=== PATIENT | male | born 1965 | race Caucasian/White ===

== ENCOUNTER 2018-02-27 09:44 | Inpatient (IN) | payer OTHER | END 2018-03-01 11:50 | disposition home or self-care (01) | LOC: ER 09:44 → SUR 3N 02-28 07:20 → ED HOLD 12:58 ==

== ENCOUNTER 2019-09-25 17:02 | Inpatient (IN) | payer OTHER ==
[~2019-09-25] VITALS: Ht 185.4 cm; Wt 104.0 kg
[~2019-09-25 17:02] MED LIST: FERR325T32 PO; FOLI1TAB16 PO; PANT40TA4 PO; THIA100T66 PO
[2019-09-25] MEDS ORDERED: pantoprazole 40MG/NS 100ML BAG 100 ML IV STA (17:22)
[2019-09-25] MEDS ORDERED: pantoprazole IV 80 MG in normal saline 100ml IV soln 100 ML IV ONE (17:25)
[2019-09-25] MEDS ORDERED: normal saline 1000ML IV soln IV ONE (17:25)
[2019-09-25] MEDS ORDERED: pantoprazole 40 MG vial IV ONE (17:35)
[2019-09-25 17:47] LABS: BASOPHILS # (AUTO) 0.1 X10'3 (0-0.2); BASOPHILS % (AUTO) 0.8 % (0-1); EOSINOPHILS # (AUTO) 0.1 X10'3 (0-0.9); EOSINOPHILS % (AUTO) 0.9 % (0-6); HEMATOCRIT 26.7 % (42.0-52.0); HEMOGLOBIN 9.4 g/dl (14.0-17.9); LYMPHOCYTES # (AUTO) 2.9 X10'3 (1.1-4.8); LYMPHOCYTES % (AUTO) 28.6 % (21-51); MEAN CORPUSCULAR HEMOGLOBIN 32.7 PG (27.0-31.0); MEAN CORPUSCULAR HGB CONC 35.2 g/dL (33.0-36.5); MEAN PLATELET VOLUME 7.6 FL (7.4-10.4); MONOCYTES # (AUTO) 0.8 X10'3 (0-0.9); NEUTROPHILS # (AUTO) 6.2 X10'3 (1.8-7.7); NEUTROPHILS % (AUTO) 61.7 % (42-75); PLATELET COUNT 149 X10'3 (140-440); RED BLOOD COUNT 2.87 X10'6 (4.70-6.10); RED CELL DISTRIBUTION WIDTH 16.5 % (11.5-14.5)
--- NOTE | 2019-09-25 17:49 | NUR ---
spoke with pt's and she states pt had had bright red bloody bm and dark tary black stool today at 1200
[2019-09-25 17:57] LABS: ALANINE AMINOTRANSFERASE 28 U/L (12-78); ALBUMIN/GLOBULIN RATIO 0.9 (1.1-1.5); ALKALINE PHOSPHATASE 49 IU/L (46-116); ANION GAP 9 (8-16); ASPARTATE AMINO TRANSFERASE 28 U/L (10-37); BILIRUBIN,TOTAL 0.7 MG/DL (0.1-1.0); BLOOD UREA NITROGEN 33 MG/DL (7-18); BUN/CREATININE RATIO 30.8 (5.4-32.0); CALCIUM 8.1 MG/DL (8.5-10.1); CHLORIDE 109 MMOL/L (99-107); CREATININE 1.07 MG/DL (0.60-1.10); ETHANOL < 0.010 GM/DL (0.0-0.010); GLUCOSE 106 MG/DL (70-104); LIPASE 121 U/L (73-393); PARTIAL THROMBOPLASTIN TIME 28 SECONDS (22-32); POTASSIUM 3.9 MMOL/L (3.5-5.1); SODIUM 141 MMOL/L (135-145); TOTAL CARBON DIOXIDE 23.4 MMOL/L (24-32); TOTAL PROTEIN 6.5 G/DL (6.4-8.2); eGFR 71 ML/MIN
[2019-09-25] MEDS ORDERED: NO HOME MEDS (18:43)
[2019-09-25 19:45] LABS: CLARITY,URINE CLEAR (Clear); COLOR,URINE YELLOW (Yellow); GLUCOSE, URINE NEGATIVE (Neg); KETONES,URINE NEGATIVE (Neg); LEUKOCYTE ESTERASE ,URINE NEGATIVE (Neg); NITRITES, URINE NEGATIVE (Neg); OCCULT BLOOD,URINE NEGATIVE (Neg); PROTEIN,URINE NEGATIVE (Neg); UA COLLECTION TYPE CLN CATCH MIDSTREAM; UROBILINOGEN,URINE 0.2 E.U/dL (0.2-1.0)
[2019-09-25] MEDS ORDERED: acetaminophen 325mg tablet PO PRN ×2 (20:00)
[2019-09-25] MEDS ORDERED: magnesium 4gm in 100ml NS 100 ML IV PRN (20:00)
[2019-09-25] MEDS ORDERED: LORazepam 2 mg/ml vial IV PRN (20:00)
[2019-09-25] MEDS ORDERED: magnesium 2GM in 50ml NS 50 ML IV PRN (20:00)
[2019-09-25] MEDS ORDERED: morphine 2 MG/ML inj. syringe IV PRN (20:00)
[2019-09-25] MEDS: K and/or MAG REPLACEMENT MC SCH (20:00)
[2019-09-25] MEDS ORDERED: ondansetron/PF 4mg/2ml inj IV PRN (20:00)
[2019-09-25] MEDS ORDERED: HYDROcodone/acetaminophen 5mg/325mg tablet PO PRN (20:00)
[2019-09-25] MEDS ORDERED: potassium CL 10mEq/100ml bag 100 ML IV PRN ×2 (20:00)
[2019-09-25] MEDS ORDERED: potassium Cl 20 mEq SR tablet PO PRN ×2 (20:00)
[2019-09-25] MEDS ORDERED: magnesium Cl slow-release 64mg tablet PO PRN (20:00)
[2019-09-25] MEDS ORDERED: LORazepam 1 MG tablet PO PRN (20:00)
[2019-09-25] MEDS: normal saline 1000ml 1,000 ML IV SCH (20:21)
--- NOTE | 2019-09-25 20:34 | NUR ---
Patient in room ED 10. I have received report from Vianney BECERRA and had the opportunity to ask questions and awaiting arrival of the patient to the PCU unit.
--- NOTE | 2019-09-25 20:50 | NUR ---
Patient arrived from the ED to PCU at this time into room 3012C. He is alert and oriented and able to make his needs known. He scooted over from the gurney to the bed without issues. His vitals are stable. He is on room air. Call light in reach and all safety precautions in place. Will continue to monitor.
[2019-09-25 21:00] VITALS: BP 131/70
[2019-09-25 21:06] LABS: % IRON SATURATION 56 % (11-46); IRON 164 UG/DL (53-167); TOTAL IRON BINDING CAPACITY 291 UG/DL (259-388)
[2019-09-25] MEDS: pantoprazole 40MG/NS 100ML BAG 100 ML IV SCH (22:04)
[2019-09-26] VITALS (22 sets, daily range): BP systolic 95–138; BP diastolic 41–80
[2019-09-26] MEDS: pantoprazole 40MG/NS 100ML BAG 100 ML IV SCH ×5 (02:52→23:42)
[2019-09-26] MEDS: normal saline 1000ml 1,000 ML IV SCH ×3 (05:10→17:55)
[2019-09-26 05:22] LABS: BASOPHILS % (AUTO) 0.5 % (0-1); EOSINOPHILS # (AUTO) 0.1 X10'3 (0-0.9); EOSINOPHILS % (AUTO) 1.9 % (0-6); LYMPHOCYTES # (AUTO) 1.3 X10'3 (1.1-4.8); LYMPHOCYTES % (AUTO) 37.9 % (21-51); MEAN CORPUSCULAR HGB CONC 35.4 g/dL (33.0-36.5); MEAN CORPUSCULAR VOLUME 93.4 FL (78-98); MEAN PLATELET VOLUME 7.8 FL (7.4-10.4); MONOCYTES # (AUTO) 0.4 X10'3 (0-0.9); MONOCYTES % (AUTO) 10.3 % (2-12); NEUTROPHILS # (AUTO) 1.7 X10'3 (1.8-7.7); NEUTROPHILS % (AUTO) 49.4 % (42-75); PLATELET COUNT 65 X10'3 (140-440); RED BLOOD COUNT 1.95 X10'6 (4.70-6.10); RED CELL DISTRIBUTION WIDTH 16.5 % (11.5-14.5); WHITE BLOOD COUNT 3.4 X10'3 (4.5-11.0)
[2019-09-26 05:38] LABS: ALANINE AMINOTRANSFERASE 22 U/L (12-78); ALBUMIN 2.3 G/DL (3.4-5.0); ALBUMIN/GLOBULIN RATIO 0.8 (1.1-1.5); ALKALINE PHOSPHATASE 37 IU/L (46-116); AMYLASE 26 U/L (25-115); ANION GAP 7 (8-16); ASPARTATE AMINO TRANSFERASE 19 U/L (10-37); BILIRUBIN,TOTAL 0.5 MG/DL (0.1-1.0); BLOOD UREA NITROGEN 30 MG/DL (7-18); BUN/CREATININE RATIO 25.2 (5.4-32.0); CALCIUM 7.8 MG/DL (8.5-10.1); CHLORIDE 114 MMOL/L (99-107); CREATININE 1.19 MG/DL (0.60-1.10); GLUCOSE 99 MG/DL (70-104); LIPASE 212 U/L (73-393); MAGNESIUM 1.9 MG/DL (1.5-2.4); POTASSIUM 3.8 MMOL/L (3.5-5.1); SODIUM 144 MMOL/L (135-145); TOTAL CARBON DIOXIDE 23.2 MMOL/L (24-32); TOTAL PROTEIN 5.1 G/DL (6.4-8.2); eGFR 63 ML/MIN
--- NOTE | 2019-09-26 06:43 | NUR ---
Problems reprioritized. Patient report given, questions answered & plan of care reviewed with Chuy RN.
--- NOTE | 2019-09-26 06:51 | NUR ---
Patient in room PCU 3012. I have received report from jose carlos and had the opportunity to ask questions and assume patient care.
[2019-09-26 06:57] LABS: HEMATOCRIT 18.2 % (42.0-52.0); HEMOGLOBIN 6.5 g/dl (14.0-17.9)
--- NOTE | 2019-09-26 07:09 | NUR ---
PAGER ID: [phone] MESSAGE: DO SIBLEY, 3012C/GERARDO H+H CRITICAL, 6.5/18.2. BLOOD CONSENT IN FRONT OF CHART, PT GIVEN GUIDE TO BLOOD TRANSFUSION. STARTING SECOND IV. KRANTHI [id number]. TY
[2019-09-26 07:12] LABS: ANISOCYTOSIS 1+; PLATELET ESTIMATE DECREASED; TOTAL CELLS COUNTED 100
[2019-09-26 07:13] LABS: POLYCHROMASIA FEW
[2019-09-26 07:14] LABS: HYPOCHROMASIA 1+
[2019-09-26 07:15] LABS: ROULEAUX 1+
[2019-09-26] MEDS: K and/or MAG REPLACEMENT MC SCH ×2 (08:00→20:00)
[2019-09-26] MEDS ORDERED: octreotide inj. 500 MCG in normal saline 100ml IV soln 100 ML IV SCH (09:40)
[2019-09-26] MEDS ORDERED: OCTREOTIDE 1,250 MCG in NS 250ml IV.SOLN IV SCH (09:45)
[2019-09-26] MEDS ORDERED: MIDAZolam 5mg/5ml vial ONE (13:40)
[2019-09-26] MEDS ORDERED: LIDOcaine Viscous 15ml cup ONE (13:40)
[2019-09-26] MEDS ORDERED: fentaNYL/PF 50MCG/1 ML 2ML syringe ONE (13:40)
[2019-09-26 16:36] LABS: BASOPHILS % (AUTO) 0.6 % (0-1); EOSINOPHILS # (AUTO) 0.1 X10'3 (0-0.9); EOSINOPHILS % (AUTO) 1.6 % (0-6); HEMATOCRIT 22.7 % (42.0-52.0); HEMOGLOBIN 7.8 g/dl (14.0-17.9); LYMPHOCYTES # (AUTO) 1.4 X10'3 (1.1-4.8); LYMPHOCYTES % (AUTO) 35.1 % (21-51); MEAN CORPUSCULAR HGB CONC 34.4 g/dL (33.0-36.5); MEAN CORPUSCULAR VOLUME 93.1 FL (78-98); MEAN PLATELET VOLUME 7.7 FL (7.4-10.4); MONOCYTES # (AUTO) 0.4 X10'3 (0-0.9); MONOCYTES % (AUTO) 9.1 % (2-12); NEUTROPHILS # (AUTO) 2.1 X10'3 (1.8-7.7); NEUTROPHILS % (AUTO) 53.6 % (42-75); PLATELET COUNT 76 X10'3 (140-440); RED BLOOD COUNT 2.44 X10'6 (4.70-6.10); RED CELL DISTRIBUTION WIDTH 17.8 % (11.5-14.5); WHITE BLOOD COUNT 3.9 X10'3 (4.5-11.0)
--- NOTE | 2019-09-26 18:29 | NUR ---
Patient in room PCU 3012. I have received report from Chuy BECERRA and had the opportunity to ask questions and assume patient care.
--- NOTE | 2019-09-26 18:31 | NUR ---
Patient in room PCU 3012. I have received report from Chuy BECERRA and had the opportunity to ask questions and assume patient care.
--- NOTE | 2019-09-26 18:33 | NUR ---
Problems reprioritized. Patient report given, questions answered & plan of care reviewed with MARIAM KIM.
[2019-09-26 22:16] LABS: MEAN CORPUSCULAR HEMOGLOBIN 31.8 PG (27.0-31.0); MEAN CORPUSCULAR HGB CONC 34.4 g/dL (33.0-36.5); MEAN CORPUSCULAR VOLUME 92.4 FL (78-98); MEAN PLATELET VOLUME 7.9 FL (7.4-10.4); PLATELET COUNT 64 X10'3 (140-440); RED BLOOD COUNT 2.19 X10'6 (4.70-6.10); WHITE BLOOD COUNT 2.6 X10'3 (4.5-11.0)
[2019-09-26 23:05] LABS: HEMATOCRIT 20.2 % (42.0-52.0)
--- NOTE | 2019-09-26 23:09 | NUR ---
PAGER ID: [phone] MESSAGE: Iam Brunner [id number]: Patient H & H came back at 7.0 and 20.2 down from 7.7 and 22.7 -Darcy BECERRA [id number] Addendum: 09/26/19 at 2311 by Brandt Dixon RN called and ordered to recheck in the AM.
[2019-09-27] VITALS (8 sets, daily range): BP systolic 112–131; BP diastolic 60–79
[2019-09-27] MEDS: pantoprazole 40MG/NS 100ML BAG 100 ML IV SCH ×3 (01:00→11:49)
[2019-09-27] MEDS: normal saline 1000ml 1,000 ML IV SCH ×2 (02:00→12:00)
--- NOTE | 2019-09-27 06:00 | NUR ---
Patient in room PCU 3012. I have received report from Darcy BECERRA and had the opportunity to ask questions and assume patient care.
--- NOTE | 2019-09-27 06:23 | NUR ---
Student documentation: I have reviewed and agree with all interventions, assessments performed and documented by Shantal JACK. Student Medication Administration: For this medication-pass time frame, all medication were reviewed, dispensed, administered and documented per hospital policy by Shantal JACK.
--- NOTE | 2019-09-27 06:23 | NUR ---
Problems reprioritized. Patient report given, questions answered & plan of care reviewed with Malinda BECERRA.
[2019-09-27 07:50] LABS: HEMOGLOBIN 7.3 g/dl (14.0-17.9); MEAN CORPUSCULAR HGB CONC 34.6 g/dL (33.0-36.5); MEAN CORPUSCULAR VOLUME 92.5 FL (78-98); MEAN PLATELET VOLUME 7.7 FL (7.4-10.4); PLATELET COUNT 63 X10'3 (140-440); RED BLOOD COUNT 2.27 X10'6 (4.70-6.10); RED CELL DISTRIBUTION WIDTH 17.8 % (11.5-14.5); WHITE BLOOD COUNT 2.5 X10'3 (4.5-11.0)
[2019-09-27] MEDS: K and/or MAG REPLACEMENT MC SCH (08:00)
--- NOTE | 2019-09-27 08:07 | NUR ---
Page Sent PAGER ID: [phone] MESSAGE: [id number] Jose Sanchez. Hg 7.3. Critical Hct 21. Plt 63. Malinda [phone]
[2019-09-27 08:18] LABS: ALANINE AMINOTRANSFERASE 28 U/L (12-78); ALBUMIN 2.5 G/DL (3.4-5.0); ALBUMIN/GLOBULIN RATIO 0.8 (1.1-1.5); ALKALINE PHOSPHATASE 40 IU/L (46-116); AMYLASE 28 U/L (25-115); ANION GAP 7 (8-16); ASPARTATE AMINO TRANSFERASE 28 U/L (10-37); BILIRUBIN,TOTAL 0.5 MG/DL (0.1-1.0); BLOOD UREA NITROGEN 17 MG/DL (7-18); CALCIUM 7.6 MG/DL (8.5-10.1); CHLORIDE 112 MMOL/L (99-107); CREATININE 1.06 MG/DL (0.60-1.10); GLUCOSE 117 MG/DL (70-104); LIPASE 178 U/L (73-393); MAGNESIUM 1.8 MG/DL (1.5-2.4); POTASSIUM 3.8 MMOL/L (3.5-5.1); SODIUM 141 MMOL/L (135-145); TOTAL CARBON DIOXIDE 22.5 MMOL/L (24-32); TOTAL PROTEIN 5.5 G/DL (6.4-8.2); eGFR 72 ML/MIN
[2019-09-27 14:03] LABS: HEMATOCRIT 26.5 % (42.0-52.0); MEAN CORPUSCULAR HEMOGLOBIN 31.7 PG (27.0-31.0); MEAN CORPUSCULAR HGB CONC 34.2 g/dL (33.0-36.5); MEAN CORPUSCULAR VOLUME 92.9 FL (78-98); MEAN PLATELET VOLUME 7.8 FL (7.4-10.4); PLATELET COUNT 100 X10'3 (140-440); RED BLOOD COUNT 2.85 X10'6 (4.70-6.10); RED CELL DISTRIBUTION WIDTH 17.4 % (11.5-14.5); WHITE BLOOD COUNT 5.2 X10'3 (4.5-11.0)
[2019-09-27] MEDS ORDERED: PANT-47 PO (15:09)
[2019-09-27] MEDS ORDERED: CARV6.253 PO (15:09)
--- NOTE | 2019-09-27 16:28 | NUR ---
Patient was d/c to home. His picked him up. 2 PIVs were removed with cannula intact. RX were sent to [facility] in [place]. Discharge instructions were reviewed with patient and he verbalized agreement . Patient was alert, oriented, and appropriate at time of discharge. Patient was advised to have clear liquids diet and to quit drinking.
== END 2019-09-27 15:47 | disposition home or self-care (01) | DRG 432 ==
LOC: ER 17:02 → ED HOLD 20:00 → PCU 3S 20:50
PROVIDERS: ADMIT Internal Medicine; ATTEND Family Medicine
PROC: 06L38CZ Occlusion of Esophageal Vein with Extraluminal Device, Via Natural or Artificial Opening Endoscopic (ICD-10-PCS; principal; 2019-09-26)
PROC: 30233N1 Transfusion of Nonautologous Red Blood Cells into Peripheral Vein, Percutaneous Approach (ICD-10-PCS; 2019-09-26)
DX: K74.60 Unspecified cirrhosis of liver (principal); I85.11 Secondary esophageal varices with bleeding; K92.0 Hematemesis; K76.6 Portal hypertension; B18.2 Chronic viral hepatitis C; D64.9 Anemia, unspecified; D69.59 Other secondary thrombocytopenia; K72.90 Hepatic failure, unspecified without coma; D69.6 Thrombocytopenia, unspecified; F10.20 Alcohol dependence, uncomplicated; K31.89 Other diseases of stomach and duodenum; Z72.0 Tobacco use
CPT/HCPCS: 36415; 36430; 43244; 71045; 80053; 80320; 81003; 82150; 83540; 83550; 83690; 83735; 85007; 85025; 85027; 85610; 85730; 86885; 86900; 86901; 86920; 87081; 93005; 96365; 96375; 99152; 99285; A4620; C9113; G0378; J2250; J2354; J3010; J7030; J7040; J7050; P9016

== ENCOUNTER 2020-08-06 10:11 | Inpatient (IN) | payer OTHER ==
[~2020-08-06] VITALS: Ht 185.4 cm; Wt 96.0 kg
[~2020-08-06 10:11] MED LIST changes: +CARV6.253 PO; -FERR325T32 PO; -FOLI1TAB16 PO; +PANT-47 PO; -PANT40TA4 PO; -THIA100T66 PO
[2020-08-06 11:08] LABS: BASOPHILS % (AUTO) 0.6 % (0-1); EOSINOPHILS # (AUTO) 0.1 X10'3 (0-0.9); EOSINOPHILS % (AUTO) 1.1 % (0-6); HEMATOCRIT 38.8 % (42.0-52.0); HEMOGLOBIN 13.7 g/dl (14.0-17.9); LYMPHOCYTES # (AUTO) 1.2 X10'3 (1.1-4.8); LYMPHOCYTES % (AUTO) 21.7 % (21-51); MEAN CORPUSCULAR HEMOGLOBIN 34.4 PG (27.0-31.0); MEAN CORPUSCULAR HGB CONC 35.3 g/dL (33.0-36.5); MEAN CORPUSCULAR VOLUME 97.5 FL (78-98); MEAN PLATELET VOLUME 8.5 FL (7.4-10.4); MONOCYTES # (AUTO) 0.3 X10'3 (0-0.9); NEUTROPHILS # (AUTO) 3.9 X10'3 (1.8-7.7); NEUTROPHILS % (AUTO) 70.6 % (42-75); PLATELET COUNT 88 X10'3 (140-440); RED BLOOD COUNT 3.98 X10'6 (4.70-6.10); RED CELL DISTRIBUTION WIDTH 13.5 % (11.5-14.5); WHITE BLOOD COUNT 5.6 X10'3 (4.5-11.0)
[2020-08-06 11:33] LABS: ALANINE AMINOTRANSFERASE 37 U/L (12-78); ALBUMIN 3.5 G/DL (3.4-5.0); ALBUMIN/GLOBULIN RATIO 0.8 (1.1-1.5); ALKALINE PHOSPHATASE 69 IU/L (46-116); AMYLASE 26 U/L (25-115); ANION GAP 9 (8-16); ASPARTATE AMINO TRANSFERASE 29 U/L (10-37); BILIRUBIN,TOTAL 0.7 MG/DL (0.1-1.0); BLOOD UREA NITROGEN 29 MG/DL (7-18); BUN/CREATININE RATIO 26.4 (5.4-32.0); CALCIUM 8.5 MG/DL (8.5-10.1); CHLORIDE 110 MMOL/L (99-107); GLUCOSE 92 MG/DL (70-104); LIPASE 80 U/L (73-393); SODIUM 141 MMOL/L (135-145); TOTAL CARBON DIOXIDE 22.2 MMOL/L (24-32); TOTAL PROTEIN 7.8 G/DL (6.4-8.2); eGFR 69 ML/MIN
--- NOTE | 2020-08-06 14:44 | NUR ---
pt is resting quietly on gurney, resp even and unlabored, skin p/w/d, c/o black "sticky" bowel movement" this am, +dizziness, lower abd "cramping", no ETOH x1 year, has been evaluated by provider
[2020-08-06] MEDS ORDERED: TRAZ-256 PO (15:25)
[2020-08-06] MEDS ORDERED: octreotide 100mcg/1 ml ampule SQ ONE (15:45)
[2020-08-06] MEDS ORDERED: octreotide 100mcg/1 ml ampule IV ONE (15:45)
[2020-08-06] MEDS ORDERED: pantoprazole IV 80 MG in normal saline 100ml IV soln 100 ML IV ONE (15:45)
[2020-08-06 15:55] LABS: BASOPHILS % (AUTO) 0.6 % (0-1); EOSINOPHILS # (AUTO) 0.1 X10'3 (0-0.9); EOSINOPHILS % (AUTO) 2.5 % (0-6); HEMATOCRIT 39.5 % (42.0-52.0); HEMOGLOBIN 13.6 g/dl (14.0-17.9); LYMPHOCYTES # (AUTO) 1.2 X10'3 (1.1-4.8); LYMPHOCYTES % (AUTO) 30.3 % (21-51); MEAN CORPUSCULAR HEMOGLOBIN 34.1 PG (27.0-31.0); MEAN CORPUSCULAR HGB CONC 34.4 g/dL (33.0-36.5); MEAN CORPUSCULAR VOLUME 99.1 FL (78-98); MEAN PLATELET VOLUME 8.7 FL (7.4-10.4); MONOCYTES # (AUTO) 0.3 X10'3 (0-0.9); NEUTROPHILS # (AUTO) 2.3 X10'3 (1.8-7.7); NEUTROPHILS % (AUTO) 59.6 % (42-75); PLATELET COUNT 75 X10'3 (140-440); RED BLOOD COUNT 3.99 X10'6 (4.70-6.10); RED CELL DISTRIBUTION WIDTH 14.1 % (11.5-14.5); WHITE BLOOD COUNT 3.8 X10'3 (4.5-11.0)
[2020-08-06 16:09] LABS: PARTIAL THROMBOPLASTIN TIME 33 SECONDS (22-32)
[2020-08-06 16:11] LABS: ALANINE AMINOTRANSFERASE 35 U/L (12-78); ALBUMIN 3.6 G/DL (3.4-5.0); ALBUMIN/GLOBULIN RATIO 0.9 (1.1-1.5); ALKALINE PHOSPHATASE 69 IU/L (46-116); ANION GAP 8 (8-16); ASPARTATE AMINO TRANSFERASE 31 U/L (10-37); BILIRUBIN,TOTAL 0.9 MG/DL (0.1-1.0); BLOOD UREA NITROGEN 31 MG/DL (7-18); CALCIUM 8.6 MG/DL (8.5-10.1); CHLORIDE 109 MMOL/L (99-107); CREATININE 1.15 MG/DL (0.60-1.10); GLUCOSE 89 MG/DL (70-104); POTASSIUM 4.2 MMOL/L (3.5-5.1); SODIUM 142 MMOL/L (135-145); TOTAL CARBON DIOXIDE 24.6 MMOL/L (24-32); TOTAL PROTEIN 7.6 G/DL (6.4-8.2); eGFR 66 ML/MIN
[2020-08-06] MEDS ORDERED: potassium Cl 20 mEq SR tablet PO PRN ×2 (16:45)
[2020-08-06] MEDS ORDERED: magnesium hydroxide 30ml (MOM) UD suspension PO PRN (16:45)
[2020-08-06] MEDS ORDERED: mag hydrox/Alum hydrox/simeth 30ml oral suspension PO PRN (16:45)
[2020-08-06] MEDS ORDERED: haloperidol lactate 5mg/ml inj IM PRN (16:45)
[2020-08-06] MEDS ORDERED: potassium Cl 40MEQ/1/2NS 520ml 520 ML IV PRN ×2 (16:45)
[2020-08-06] MEDS ORDERED: diphenhydrAMINE 25mg capsule PO PRN (16:45)
[2020-08-06] MEDS ORDERED: haloperidol 5mg tablet PO PRN (16:45)
[2020-08-06] MEDS ORDERED: thiamine 100mg/ml 2ml inj. IV ONE (16:45)
[2020-08-06] MEDS ORDERED: dextrose 50%-water 50ml dispensing syringe IV PRN (16:45)
[2020-08-06] MEDS ORDERED: LORazepam 1 MG tablet PO PRN (16:45)
[2020-08-06] MEDS ORDERED: magnesium 4gm in 100ml NS 100 ML IV PRN (16:45)
[2020-08-06] MEDS ORDERED: acetaminophen 325mg tablet PO PRN (16:45)
[2020-08-06] MEDS ORDERED: LORazepam 2 mg/ml vial IV PRN (16:45)
[2020-08-06] MEDS ORDERED: bisacodyl 10mg suppository rectal RC PRN (16:45)
[2020-08-06] MEDS ORDERED: magnesium Cl slow-release 64mg tablet PO PRN (16:45)
[2020-08-06] MEDS ORDERED: magnesium 2GM in 50ml NS 50 ML IV PRN (16:45)
[2020-08-06] MEDS ORDERED: ondansetron/PF 4mg/2ml inj IV PRN (16:45)
[2020-08-06] MEDS ORDERED: morphine 2 MG/ML inj. syringe IV PRN (16:45)
[2020-08-06] MEDS: OCTREOTIDE 1,250 MCG in NS 250ml IV.SOLN IV SCH (16:51)
[2020-08-06] MEDS: dextrose 5%-normal saline 1,000 ML IV SCH (17:02)
[2020-08-06 17:09] LABS: HEMATOCRIT 37.4 % (42.0-52.0); HEMOGLOBIN 12.9 g/dl (14.0-17.9); MEAN CORPUSCULAR HEMOGLOBIN 34.2 PG (27.0-31.0); MEAN CORPUSCULAR HGB CONC 34.6 g/dL (33.0-36.5); MEAN CORPUSCULAR VOLUME 98.8 FL (78-98); MEAN PLATELET VOLUME 8.9 FL (7.4-10.4); PLATELET COUNT 76 X10'3 (140-440); RED BLOOD COUNT 3.78 X10'6 (4.70-6.10); RED CELL DISTRIBUTION WIDTH 13.7 % (11.5-14.5); WHITE BLOOD COUNT 3.5 X10'3 (4.5-11.0)
[2020-08-06] MEDS: pantoprazole 40MG/NS 100ML BAG 100 ML IV SCH ×2 (17:53→23:53)
--- NOTE | 2020-08-06 18:06 | NUR ---
pt is eating ice chips, cranberry juice, diomedes well, no n/v
[2020-08-06 19:16] LABS: ETHANOL < 0.010 GM/DL (0.0-0.010)
[2020-08-06 19:27] LABS: OCCULT BLOOD STOOL POSITIVE (Neg)
[2020-08-06] MEDS: K and/or MAG REPLACEMENT MC SCH (20:00)
--- NOTE | 2020-08-06 20:17 | NUR ---
pt amb with steady gait to restroom, waiting for bed assignment
[2020-08-06] MEDS: traZODone 50mg tablet PO SCH (21:00)
--- NOTE | 2020-08-06 22:37 | NUR ---
report given by tawny garcia, assumed care. pt appears asleep. even chest rise and fall
[2020-08-06 23:47] LABS: HEMATOCRIT 36.4 % (42.0-52.0); HEMOGLOBIN 12.8 g/dl (14.0-17.9); MEAN CORPUSCULAR HEMOGLOBIN 34.2 PG (27.0-31.0); MEAN CORPUSCULAR HGB CONC 35.1 g/dL (33.0-36.5); MEAN CORPUSCULAR VOLUME 97.3 FL (78-98); MEAN PLATELET VOLUME 9.2 FL (7.4-10.4); PLATELET COUNT 72 X10'3 (140-440); RED BLOOD COUNT 3.74 X10'6 (4.70-6.10); RED CELL DISTRIBUTION WIDTH 13.6 % (11.5-14.5); WHITE BLOOD COUNT 3.3 X10'3 (4.5-11.0)
[2020-08-07] VITALS (10 sets, daily range): BP systolic 100–149; BP diastolic 50–95
[2020-08-07] MEDS: pantoprazole 40MG/NS 100ML BAG 100 ML IV SCH ×7 (01:00→23:15)
--- NOTE | 2020-08-07 02:04 | NUR ---
report given to Vianney BECERRA, care transferred
[2020-08-07 02:27] LABS: URINE AMPHETAMINE SCREEN NEGATIVE (Neg); URINE BARBITUATE SCREEN NEGATIVE (Neg); URINE BENZODIAZEPINES SCREEN NEGATIVE (Neg); URINE CANNABINOID SCREEN NEGATIVE (Neg); URINE COCAINE SCREEN NEGATIVE (Neg); URINE METHADONE SCREEN NEGATIVE (Neg); URINE OPIATE SCREEN NEGATIVE (Neg); URINE PHENCYCLIDINE SCREEN NEGATIVE (Neg)
[2020-08-07 02:32] LABS: CLARITY,URINE CLEAR (Clear); COLOR,URINE YELLOW (Yellow); GLUCOSE, URINE >=1000 mg/dl (Neg); KETONES,URINE NEGATIVE (Neg); LEUKOCYTE ESTERASE ,URINE NEGATIVE (Neg); NITRITES, URINE NEGATIVE (Neg); OCCULT BLOOD,URINE NEGATIVE (Neg); PROTEIN,URINE NEGATIVE (Neg); UROBILINOGEN,URINE 0.2 E.U/dL (0.2-1.0)
[2020-08-07 02:34] LABS: UA COLLECTION TYPE NON-SPECIFIED
[2020-08-07 02:38] LABS: BACTERIA,URINE NONE SEEN /HPF (Neg); RBC,URINE 0-2 /HPF (0-2); SQUAMOUS EPITHELIAL CELL,UR FEW /LPF (FEW); WBC,URINE NONE SEEN /HPF (0-4)
--- NOTE | 2020-08-07 03:00 | NUR ---
PT HEAD TO TOE ASSESSMENT UNCHANGED FROM PREVIOUS ASSESSMENT
[2020-08-07 05:21] LABS: ALANINE AMINOTRANSFERASE 35 U/L (12-78); ALBUMIN 3.1 G/DL (3.4-5.0); ALBUMIN/GLOBULIN RATIO 0.8 (1.1-1.5); ALKALINE PHOSPHATASE 59 IU/L (46-116); AMYLASE 23 U/L (25-115); ANION GAP 8 (8-16); ASPARTATE AMINO TRANSFERASE 55 U/L (10-37); BILIRUBIN,TOTAL 0.9 MG/DL (0.1-1.0); BLOOD UREA NITROGEN 23 MG/DL (7-18); BUN/CREATININE RATIO 20.2 (5.4-32.0); CHLORIDE 107 MMOL/L (99-107); CHOL/HDL RATIO 2.5 (0.00-4.99); CHOLESTEROL 98 MG/DL (0-200); CREATININE 1.14 MG/DL (0.60-1.10); GLUCOSE 93 MG/DL (70-104); HDL CHOLESTEROL 40 MG/DL (35-60); LDL CHOLESTEROL 46 MG/DL (50-100); PHOSPHORUS 4.2 MG/DL (2.3-4.5); POTASSIUM 4.4 MMOL/L (3.5-5.1); SODIUM 140 MMOL/L (135-145); TOTAL CARBON DIOXIDE 25.4 MMOL/L (24-32); TOTAL PROTEIN 6.9 G/DL (6.4-8.2); TRIGLYCERIDES 69 MG/DL (20-135); eGFR 66 ML/MIN
[2020-08-07 05:22] LABS: BASOPHILS % (AUTO) 1.3 % (0-1); EOSINOPHILS # (AUTO) 0.1 X10'3 (0-0.9); EOSINOPHILS % (AUTO) 3.6 % (0-6); HEMOGLOBIN 12.5 g/dl (14.0-17.9); LYMPHOCYTES % (AUTO) 40.4 % (21-51); MEAN CORPUSCULAR HEMOGLOBIN 34.5 PG (27.0-31.0); MEAN CORPUSCULAR HGB CONC 34.6 g/dL (33.0-36.5); MEAN CORPUSCULAR VOLUME 99.8 FL (78-98); MONOCYTES # (AUTO) 0.2 X10'3 (0-0.9); MONOCYTES % (AUTO) 9.1 % (2-12); NEUTROPHILS # (AUTO) 1.1 X10'3 (1.8-7.7); NEUTROPHILS % (AUTO) 45.6 % (42-75); PLATELET COUNT 65 X10'3 (140-440); RED BLOOD COUNT 3.61 X10'6 (4.70-6.10); RED CELL DISTRIBUTION WIDTH 13.6 % (11.5-14.5); WHITE BLOOD COUNT 2.5 X10'3 (4.5-11.0)
[2020-08-07] MEDS: dextrose 5%-normal saline 1,000 ML IV SCH ×3 (05:37→22:45)
[2020-08-07] MEDS ORDERED: folic acid 1mg tablet PO SCH (08:00)
[2020-08-07] MEDS: K and/or MAG REPLACEMENT MC SCH ×2 (08:00→20:00)
[2020-08-07] MEDS ORDERED: thiamine 100mg tablet PO SCH (08:00)
[2020-08-07 09:00] LABS: PLATELET ESTIMATE DECREASED; TOTAL CELLS COUNTED 100
[2020-08-07 10:49] LABS: HEMATOCRIT 37.5 % (42.0-52.0); HEMOGLOBIN 12.9 g/dl (14.0-17.9); MEAN CORPUSCULAR HEMOGLOBIN 34.1 PG (27.0-31.0); MEAN CORPUSCULAR HGB CONC 34.4 g/dL (33.0-36.5); MEAN CORPUSCULAR VOLUME 99.1 FL (78-98); MEAN PLATELET VOLUME 8.9 FL (7.4-10.4); PLATELET COUNT 79 X10'3 (140-440); RED BLOOD COUNT 3.79 X10'6 (4.70-6.10); RED CELL DISTRIBUTION WIDTH 13.7 % (11.5-14.5); WHITE BLOOD COUNT 3.4 X10'3 (4.5-11.0)
[2020-08-07] MEDS ORDERED: MIDAZolam 1 MG/ML 5ML VIAL ONE (11:26)
[2020-08-07] MEDS ORDERED: fentaNYL/PF 50MCG/1 ML 2ML syringe ONE (11:26)
[2020-08-07] MEDS ORDERED: LIDOcaine Viscous 15ml cup ONE (11:26)
--- NOTE | 2020-08-07 14:18 | NUR ---
PAGER ID: [phone] MESSAGE: [id number] GERARDO GÓMEZ, JUNE I DC THE BLOOD SUGARS, PT HAS NOT HAD A DRINK OF ALCOHOL IN 10MONTHS? [id number] [phone]
--- NOTE | 2020-08-07 18:15 | NUR ---
Patient in room PCU 3016. I have received report from MARIAM Reynolds and had the opportunity to ask questions and assume patient care.
[2020-08-07] MEDS: traZODone 50mg tablet PO SCH (21:07)
[2020-08-07] MEDS: morphine 2 MG/ML inj. syringe IV PRN (21:08)
--- NOTE | 2020-08-08 01:17 | NUR ---
Discovered Protonix IV had been turned off upon entering room. Re-started.
[2020-08-08 02:00] VITALS: BP 116/64
[2020-08-08] MEDS: pantoprazole 40MG/NS 100ML BAG 100 ML IV SCH ×4 (05:42→21:09)
--- NOTE | 2020-08-08 06:00 | NUR ---
Patient in room PCU 3016. I have received report from CONSUELO BECERRA and had the opportunity to ask questions and assume patient care.
--- NOTE | 2020-08-08 06:03 | NUR ---
Problems reprioritized. Patient report given, questions answered & plan of care reviewed with MARIAM Reynolds.
[2020-08-08 07:14] LABS: BASOPHILS % (AUTO) 0.6 % (0-1); EOSINOPHILS # (AUTO) 0.1 X10'3 (0-0.9); EOSINOPHILS % (AUTO) 2.6 % (0-6); HEMATOCRIT 34.8 % (42.0-52.0); HEMOGLOBIN 12.1 g/dl (14.0-17.9); LYMPHOCYTES # (AUTO) 0.7 X10'3 (1.1-4.8); LYMPHOCYTES % (AUTO) 27.8 % (21-51); MEAN CORPUSCULAR HEMOGLOBIN 34.3 PG (27.0-31.0); MEAN CORPUSCULAR HGB CONC 34.7 g/dL (33.0-36.5); MONOCYTES # (AUTO) 0.2 X10'3 (0-0.9); NEUTROPHILS # (AUTO) 1.5 X10'3 (1.8-7.7); PLATELET COUNT 68 X10'3 (140-440); RED BLOOD COUNT 3.52 X10'6 (4.70-6.10); RED CELL DISTRIBUTION WIDTH 13.4 % (11.5-14.5); WHITE BLOOD COUNT 2.4 X10'3 (4.5-11.0)
[2020-08-08 07:22] VITALS: BP 117/56
[2020-08-08 07:29] LABS: ALANINE AMINOTRANSFERASE 35 U/L (12-78); ALBUMIN/GLOBULIN RATIO 0.8 (1.1-1.5); ALKALINE PHOSPHATASE 57 IU/L (46-116); ANION GAP 7 (8-16); ASPARTATE AMINO TRANSFERASE 31 U/L (10-37); BILIRUBIN,TOTAL 0.7 MG/DL (0.1-1.0); BLOOD UREA NITROGEN 13 MG/DL (7-18); BUN/CREATININE RATIO 11.9 (5.4-32.0); CALCIUM 8.1 MG/DL (8.5-10.1); CHLORIDE 109 MMOL/L (99-107); CREATININE 1.09 MG/DL (0.60-1.10); GLUCOSE 88 MG/DL (70-104); MAGNESIUM 1.9 MG/DL (1.5-2.4); POTASSIUM 3.7 MMOL/L (3.5-5.1); SODIUM 140 MMOL/L (135-145); TOTAL CARBON DIOXIDE 23.7 MMOL/L (24-32); TOTAL PROTEIN 6.6 G/DL (6.4-8.2); eGFR 70 ML/MIN
[2020-08-08 07:55] LABS: PLATELET ESTIMATE DECREASED; TOTAL CELLS COUNTED 100
[2020-08-08 07:56] LABS: GIANT PLATELET FEW; LARGE PLATELETS FEW
[2020-08-08] MEDS: K and/or MAG REPLACEMENT MC SCH ×2 (08:29→18:36)
[2020-08-08] MEDS: dextrose 5%-normal saline 1,000 ML IV SCH (08:30)
--- NOTE | 2020-08-08 10:42 | NUR ---
PAGER ID: [phone] MESSAGE: [id number] GERARDO GÓMEZ. THE IV IS DRIVING THE PATIENT CRAZY CAN WE CHANGE EVERYTHING TO PO? [phone]
[2020-08-08 11:00] VITALS: BP 119/69
[2020-08-08] MEDS: morphine 2 MG/ML inj. syringe IV PRN ×2 (11:40→21:07)
[2020-08-08] MEDS: OCTREOTIDE 1,250 MCG in NS 250ml IV.SOLN IV SCH (15:30)
[2020-08-08 16:15] VITALS: BP 117/62
[2020-08-08 18:00] VITALS: BP 120/77
--- NOTE | 2020-08-08 18:16 | NUR ---
Problems reprioritized. Patient report given, questions answered & plan of care reviewed with MARIAM Almonte.
[2020-08-08] MEDS: traZODone 50mg tablet PO SCH (21:09)
[2020-08-08 22:00] VITALS: BP 117/68
[2020-08-09] MEDS: pantoprazole 40MG/NS 100ML BAG 100 ML IV SCH ×2 (00:04→04:59)
[2020-08-09] MEDS: morphine 2 MG/ML inj. syringe IV PRN (04:59)
--- NOTE | 2020-08-09 06:00 | NUR ---
Patient in room PCU 3016. I have received report from JOSE BECERRA and had the opportunity to ask questions and assume patient care.
[2020-08-09 06:58] LABS: BASOPHILS % (AUTO) 0.5 % (0-1); EOSINOPHILS # (AUTO) 0.1 X10'3 (0-0.9); EOSINOPHILS % (AUTO) 2.3 % (0-6); HEMATOCRIT 34.5 % (42.0-52.0); HEMOGLOBIN 12.2 g/dl (14.0-17.9); LYMPHOCYTES # (AUTO) 0.8 X10'3 (1.1-4.8); LYMPHOCYTES % (AUTO) 28.5 % (21-51); MEAN CORPUSCULAR HEMOGLOBIN 34.3 PG (27.0-31.0); MEAN CORPUSCULAR HGB CONC 35.3 g/dL (33.0-36.5); MEAN CORPUSCULAR VOLUME 97.3 FL (78-98); MEAN PLATELET VOLUME 8.8 FL (7.4-10.4); MONOCYTES # (AUTO) 0.2 X10'3 (0-0.9); MONOCYTES % (AUTO) 8.3 % (2-12); NEUTROPHILS # (AUTO) 1.8 X10'3 (1.8-7.7); NEUTROPHILS % (AUTO) 60.4 % (42-75); PLATELET COUNT 65 X10'3 (140-440); RED BLOOD COUNT 3.54 X10'6 (4.70-6.10); RED CELL DISTRIBUTION WIDTH 13.6 % (11.5-14.5); WHITE BLOOD COUNT 2.9 X10'3 (4.5-11.0)
[2020-08-09 06:59] LABS: ALANINE AMINOTRANSFERASE 36 U/L (12-78); ALBUMIN/GLOBULIN RATIO 0.8 (1.1-1.5); ALKALINE PHOSPHATASE 63 IU/L (46-116); ANION GAP 5 (8-16); ASPARTATE AMINO TRANSFERASE 29 U/L (10-37); BILIRUBIN,TOTAL 0.7 MG/DL (0.1-1.0); BLOOD UREA NITROGEN 14 MG/DL (7-18); BUN/CREATININE RATIO 12.3 (5.4-32.0); CALCIUM 8.1 MG/DL (8.5-10.1); CHLORIDE 108 MMOL/L (99-107); CREATININE 1.14 MG/DL (0.60-1.10); GLUCOSE 104 MG/DL (70-104); MAGNESIUM 1.9 MG/DL (1.5-2.4); PHOSPHORUS 3.6 MG/DL (2.3-4.5); POTASSIUM 3.9 MMOL/L (3.5-5.1); SODIUM 139 MMOL/L (135-145); TOTAL CARBON DIOXIDE 25.9 MMOL/L (24-32); TOTAL PROTEIN 6.8 G/DL (6.4-8.2); eGFR 66 ML/MIN
[2020-08-09 07:43] VITALS: BP 113/61
[2020-08-09] MEDS: K and/or MAG REPLACEMENT MC SCH (08:00)
[2020-08-09 08:27] LABS: PLATELET ESTIMATE DECREASED; TOTAL CELLS COUNTED 100
[2020-08-09] MEDS ORDERED: PANT-47 PO (08:58)
--- NOTE | 2020-08-09 09:56 | NUR ---
PT RECEIVED DC PAPERWORK AND VERBALIZED UNDERSTANDING OF DC INSTRUCTIONS. IV'S AND HEART MONITOR WAS DC. PT AMBULATED TO [facility] [place]
== END 2020-08-09 10:20 | disposition home or self-care (01) | DRG 432 ==
LOC: ER 10:13 → ED HOLD 16:42 → UNDOADMIN 17:12 → ED HOLD 17:12 → PCU 3S 08-07 07:10
PROVIDERS: ADMIT Family Medicine; ATTEND Family Medicine
PROC: 0W3P8ZZ Control Bleeding in Gastrointestinal Tract, Via Natural or Artificial Opening Endoscopic (ICD-10-PCS; principal; 2020-08-07)
DX: K74.69 Other cirrhosis of liver (principal); I85.11 Secondary esophageal varices with bleeding; K76.6 Portal hypertension; D64.9 Anemia, unspecified; F10.20 Alcohol dependence, uncomplicated; F17.200 Nicotine dependence, unspecified, uncomplicated; F32.9 Major depressive disorder, single episode, unspecified; F41.9 Anxiety disorder, unspecified; G47.00 Insomnia, unspecified; Z79.899 Other long term (current) drug therapy
CPT/HCPCS: 36415; 43244; 71045; 80053; 80061; 80305; 80320; 81001; 82103; 82150; 82272; 82948; 83036; 83690; 83735; 84100; 84443; 85007; 85025; 85027; 85610; 85730; 86885; 86900; 86901; 87081; 93005; 99152; 99285; A4620; C9113; G0378; J2250; J2270; J2354; J2405; J3010; J3411; J7040; J7042; J7050

== ENCOUNTER 2021-04-01 09:17 | Emergency (ER) | payer SELFPAY ==
[~2021-04-01] VITALS: Ht 182.9 cm; Wt 104.5 kg
[~2021-04-01 09:17] MED LIST changes: -CARV6.253 PO; +TRAZ-256 PO
[2021-04-01 13:53] VITALS: BP 140/90
[2021-04-01] MEDS ORDERED: SULF1TAB49 PO (14:53)
[2021-04-01] MEDS ORDERED: bacitracin 15gm ointment TP ONE (14:55)
[2021-04-01] MEDS ORDERED: TETanus/Pertussis (Acell)/Diphther VAC/PF (Tdap-Adult) 0.5ml syringe IMVAC ONE (14:55)
== END 2021-04-01 17:12 | disposition home or self-care (01) ==
LOC: ER 09:17
DX: L72.3 Sebaceous cyst (principal)
CPT/HCPCS: 10060; 90471; 90715; 99283

== ENCOUNTER 2023-03-31 19:33 | Emergency (ER) | payer MEDICAID, OTHER ==
[~2023-03-31] VITALS: Ht 182.9 cm; Wt 103.6 kg
[2023-03-31 20:26] LABS: EOSINOPHILS # (AUTO) 0.1 X10'3 (0-0.9); HEMOGLOBIN 8.1 g/dl (14.0-17.9); LYMPHOCYTES # (AUTO) 0.9 X10'3 (1.1-4.8); MEAN CORPUSCULAR HEMOGLOBIN 22.8 PG (27.0-31.0); MONOCYTES # (AUTO) 0.2 X10'3 (0-0.9); NEUTROPHILS # (AUTO) 1.6 X10'3 (1.8-7.7)
[2023-03-31 20:27] LABS: BASOPHILS % (AUTO) 1.5 % (0-1); EOSINOPHILS % (AUTO) 2.3 % (0-6); HEMATOCRIT 26.1 % (42.0-52.0); LYMPHOCYTES % (AUTO) 30.8 % (21-51); MEAN CORPUSCULAR HGB CONC 31.2 g/dL (33.0-36.5); MEAN CORPUSCULAR VOLUME 73.3 FL (78-98); MEAN PLATELET VOLUME 8.2 FL (7.4-10.4); MONOCYTES % (AUTO) 8.3 % (2-12); NEUTROPHILS % (AUTO) 57.1 % (42-75); PLATELET COUNT 68 X10'3 (140-440); RED BLOOD COUNT 3.56 X10'6 (4.70-6.10); RED CELL DISTRIBUTION WIDTH 21.1 % (11.5-14.5); WHITE BLOOD COUNT 2.8 X10'3 (4.5-11.0)
[2023-03-31 20:40] LABS: ALANINE AMINOTRANSFERASE 17 U/L (12-78); ALBUMIN 3.4 G/DL (3.4-5.0); ALBUMIN/GLOBULIN RATIO 0.8 (1.1-1.5); ALKALINE PHOSPHATASE 74 IU/L (46-116); ANION GAP 7 (8-16); ASPARTATE AMINO TRANSFERASE 16 U/L (10-37); BILIRUBIN,TOTAL 0.5 MG/DL (0.1-1.0); BLOOD UREA NITROGEN 14 MG/DL (7-18); BUN/CREATININE RATIO 10.7 (10.0-20.0); CALCIUM 8.3 MG/DL (8.5-10.1); CHLORIDE 107 MMOL/L (99-107); CREATININE 1.31 MG/DL (0.60-1.10); GLUCOSE 123 MG/DL (70-104); POTASSIUM 4.2 MMOL/L (3.5-5.1); SODIUM 141 MMOL/L (135-145); TOTAL CARBON DIOXIDE 27.4 MMOL/L (24-32); TOTAL PROTEIN 7.6 G/DL (6.4-8.2); eCRCL 67 ML/MIN; eGFR 56 ML/MIN
[2023-03-31 21:00] LABS: ANISOCYTOSIS 3+; MICROCYTOSIS 1+; PLATELET ESTIMATE DECREASED
[2023-03-31 21:01] LABS: BURR CELLS FEW; ELLIPTOCYTES 1+; HYPOCHROMASIA 1+; POLYCHROMASIA FEW; SCHISTOCYTES FEW
[2023-03-31 21:54] VITALS: BP 134/68; PULSE 55; RESP 16; TEMP 98; O2SAT 99
[2023-03-31 21:56] LABS: APTT 30 SECONDS (22-32); INR 1.2 INR; PROTHROMBIN TIME 13.2 SECONDS (9.0-12.0)
== END 2023-03-31 23:17 | disposition home or self-care (01) ==
LOC: ER 19:33
DX: D61.818 Other pancytopenia (principal); D50.9 Iron deficiency anemia, unspecified; E87.6 Hypokalemia; Z79.899 Other long term (current) drug therapy
CPT/HCPCS: 36415; 80053; 85008; 85025; 85610; 85730; 86885; 86900; 86901; 99283